=== PATIENT | female | born 1985 | race Caucasian/White ===

== ENCOUNTER 2023-06-21 21:11 | Emergency (ER) | payer OTHER, SELFPAY ==
[2023-06-21 21:35] LABS: % Basophils 0.5 % (0-2); % Eosinophils 1.8 % (0-6); % Immature Granulocytes 0.2 % (0-0.5); % Lymphocytes 34.6 % (20.5-51.1); % Monocytes 5.7 % (1.7-9.3); % Neutrophils 57.2 % (42.2-75.2); Absolute Eosinophils 0.1 10^3/uL (0-0.7); Absolute Lymphocytes 2.1 10^3/uL (1.2-3.4); Absolute Monocytes 0.4 10^3/uL (0.1-0.6); Absolute Neutrophils 3.5 10^3/uL (1.4-6.5); Hematocrit 32.3 % (37.0-47.0); Hemoglobin 10.1 g/dL (12.0-16.0); Mean Corp Hgb Conc. 31.3 g/dL (33.0-37.0); Mean Corpuscular Hgb 22.7 pg (27.0-31.0); Mean Corpuscular Volume 72.6 fL (81.0-99.0); Nucleated Red Blood Cells % 0 %; Platelet Count 189 10^3/uL (130-400); Red Blood Cell Count 4.45 10^6/uL (4.20-5.40); Red Cell Dist. Width 17.2 % (11.5-14.5); White Blood Cell Count 6.1 10^3/uL (4.8-10.8)
[2023-06-21 21:36] LABS: Urine Albumin Trace (Neg - Trace); Urine Bilirubin 1+ (Negative); Urine Character Clear (Clear); Urine Color Yellow; Urine Glucose Negative (Negative); Urine Ketone Trace (Negative); Urine Leukocyte Negative (Negative); Urine Nitrite Negative (Negative); Urine Occult Blood Negative (Negative); Urine Specific Gravity 1.025 (<1.030); Urine Urobilinogen 2+ (Neg - 1+)
[2023-06-21 21:49] LABS: HCG, Serum Qualitative Screen Negative
[2023-06-21 21:53] LABS: ALT (SGPT) 13 U/L (0-35); AST (SGOT) 18 U/L (14-36); Albumin 4.3 g/dl (3.5-5.0); Alkaline Phosphatase 69 U/L (38-126); Blood Urea Nitrogen 17 mg/dl (7-17); Calcium 9.4 mg/dl (8.4-10.2); Carbon Dioxide 26 mmol/L (22-30); Chloride 101 mmol/L (98-107); Glucose 109 mg/dl (70-99); Potassium 3.9 mmol/L (3.5-5.1); Sodium 134 mmol/L (135-145); Total Bilirubin 0.6 mg/dl (0.2-1.3); Total Protein 7.1 g/dl (6.3-8.2); eGFR > 60.00
[2023-06-21 21:54] LABS: Lipase 96 U/L (23-300)
[2023-06-21 22:59] VITALS: BMI 40.4
[2023-06-21 23:06] VITALS: BP 157/94
--- NOTE | 2023-06-21 23:08 | ED.GENMED ---
History of Present Illness
<KEDAR Wyatt - Last Filed: 06/22/23 03:55>
General
Chief Complaint: Abdominal Pain
Source: patient
Exam Limitations: none
Time Seen by Provider: 06/21/23 22:37
Nursing documentation reviewed up to this point in time: agreed with
Travel History
Have you had any contact with someone who has COVID-19?: No
Do you have any symptoms of coronavirus? Fever > 100 degrees, chills, cough, shortness of breath, sore throat, loss of taste or smell, muscle aches, or headache?: No
History of Present Illness
History of Present Illness:
This is a 37 year old female with history of gastric sleeve (August 2022), HTN, and anemia who presents to the ED with complaint of LLQ pain x1 week. She describes the pain to be sharp and intermittent. Her pain radiates to her left lower back. She
also reports left hip swelling. She has not tried any medication for pain relief and she has not noticed any patterns to her abdominal pain. She does note certain positions make it worse. LMP 2 months ago, which is normal for her menstrual cycle.
Last BM was yesterday. She denies any NVD, dysuria, frequency or urgency, chest pain, shortness of breath, fever, or headache. She denies any trauma or known injury but states she lifts heavy boxes at work. She had a gastric sleeve in August 2022 with
no complications.
Past History
<KEDAR Wyatt - Last Filed: 06/22/23 03:55>
Past History
ED Past Medical History: HTN and Other (anemia)
ED Past Surgical History: Other (Gastric sleeve 08/2022.)
Social History
Tobacco: Smoker
Alcohol: Occasional
Personal: Single
Living: with family
Employment: Employed (works at a school)
Review of Systems
<KEDAR Wyatt - Last Filed: 06/22/23 03:55>
Review of Systems
Allergies reviewed?: Yes
All Other Systems: Not applicable
Constitutional: Reports no symptoms
EENT: Reports no symptoms
Respiratory: Reports no symptoms
Cardiac: Reports no symptoms
ABD/GI: Reports abdominal pain (LLQ radiates to left lower back)
: Reports no symptoms
Musculoskeletal: Reports joint swelling (Left hip swelling)
Skin: Reports no symptoms
Neurological: Reports no symptoms
Endocrine: Reports no symptoms
Hematologic/Lymphatic: Reports no symptoms
Psychiatric: Reports no symptoms
Phy Exam
<KEDAR Wyatt - Last Filed: 06/22/23 03:55>
General Physical Exam
General Presentation: well appearing and no apparent distress
General Skin: warm and dry
General Habitus: normal
General Mental: alert
General Hydration: appears well hydrated
ENT Exam
ENT Exam: EOMI, pharynx normal, neck supple and normocephalic
Eye Exam
Eye Exam: PERRL, cornea clear and conjunctiva normal
Cardiovascular Exam
Cardiovascular Exam: regular rate/rhythm, no edema, no murmur and normal peripheral pulses
Pulmonary Exam
Pulmonary Exam: lungs clear, no respiratory distress, no rales, no crackles, no rhonchi, no stridor, no wheezing and no cough
Gastrointestinal Exam
Gastrointestinal Exam: normal bowel sounds, soft, no organomegaly, no pulsatile mass, non distended, no cva tenderness and surgical scar
Palpation: left lower quadrant: Mild tenderness
Auscultation of Abdomen: normal
Neurological Exam
Neurological Exam: alert, oriented x3, no motor deficits and speech normal
Musculoskeletal Exam
Musculoskeletal Exam: full ROM and no edema
Skin Exam
Skin Exam: normal color, warm/dry, no rash and no petechia
Psychiatric Exam
Psychiatric Exam: normal mood/affect
Course
<KEDAR Wyatt - Last Filed: 06/22/23 03:55>
Orders/Labs/Results
Orders:
Orders
06/21/23 21:18
Test Result ONCE
06/21/23 21:26
Complete Blood Count/With Diff Urgent
Comprehensive Metabolic Panel Urgent
HCG, Serum Qualitative Screen Urgent
Lipase Urgent
Urinalysis Reflex To Culture Urgent
Date Specimen was Collected: 06/21/23
Time Specimen was Collected: 21:23
06/21/23 23:14
0.9% Sodium Chloride 1000 ml [Nss] 1,000 ml IV BOLUS
HYDROmorphone [Dilaudid] 1 mg IV NOW STA
Ondansetron Injectable [Zofran] 4 mg IV NOW STA
06/22/23 00:00
CT Abd/pelvis W Iv Cont Urgent
Reason For Exam: LLQ pain x 1 week
06/22/23 03:07
US Pelvis W Transvag Combined Urgent
Reason For Exam: LLQ, L pelvic pain x 1 week-worsening
06/22/23 03:08
0.9% Sodium Chloride 1000 ml [Nss] 1,000 ml IV BOLUS
06/22/23 05:54
HYDROmorphone [Dilaudid] 0.5 mg .ROUTE .STK-MED ONE
06/22/23 06:24
0.9% Sodium Chloride 1000 ml [Nss] 1,000 ml IV 150 mls/hr
HYDROmorphone [Dilaudid] 0.5 mg IV Q3HPRN PRN
06/22/23 06:39
Type+Screen Urgent
Abnormal Lab Results
06/21/23
21:26
Hgb 10.1 L g/dL
(12.0-16.0)
Hct 32.3 L %
(37.0-47.0)
MCV 72.6 L fL
(81.0-99.0)
MCH 22.7 L pg
(27.0-31.0)
MCHC 31.3 L g/dL
(33.0-37.0)
RDW 17.2 H %
(11.5-14.5)
Sodium 134 L mmol/L
(135-145)
Glucose 109 H mg/dl
(70-99)
Urine Ketones Trace A
(Negative)
Urine Bilirubin 1+ A
(Negative)
Urine Urobilinogen 2+ A
(Neg - 1+)
06/21/23 21:26
06/21/23 21:26
Vital Signs
Initial and Last Documented VS:
Initial Vital Signs
Temp Pulse Resp Pulse Ox
99.0 F 112 20 100
06/21/23 21:14 06/21/23 21:14 06/21/23 21:14 06/21/23 21:14
Last Documented Vital Signs
Temp Pulse Resp BP Pulse Ox
99.0 F 67 16 133/78 94
06/21/23 21:14 06/22/23 03:30 06/22/23 03:30 06/22/23 08:00 06/22/23 08:15
<Clover Motley, DO - Last Filed: 06/22/23 06:29>
Orders/Labs/Results
Orders:
Orders
06/21/23 21:18
Test Result ONCE
06/21/23 21:26
Complete Blood Count/With Diff Urgent
Comprehensive Metabolic Panel Urgent
HCG, Serum Qualitative Screen Urgent
Lipase Urgent
Urinalysis Reflex To Culture Urgent
Date Specimen was Collected: 06/21/23
Time Specimen was Collected: 21:23
06/21/23 23:14
0.9% Sodium Chloride 1000 ml [Nss] 1,000 ml IV BOLUS
HYDROmorphone [Dilaudid] 1 mg IV NOW STA
Ondansetron Injectable [Zofran] 4 mg IV NOW STA
06/22/23 00:00
CT Abd/pelvis W Iv Cont Urgent
Reason For Exam: LLQ pain x 1 week
06/22/23 03:07
US Pelvis W Transvag Combined Urgent
Reason For Exam: LLQ, L pelvic pain x 1 week-worsening
06/22/23 03:08
0.9% Sodium Chloride 1000 ml [Nss] 1,000 ml IV BOLUS
06/22/23 05:54
HYDROmorphone [Dilaudid] 0.5 mg .ROUTE .STK-MED ONE
06/22/23 06:24
0.9% Sodium Chloride 1000 ml [Nss] 1,000 ml IV 150 mls/hr
HYDROmorphone [Dilaudid] 0.5 mg IV Q3HPRN PRN
06/22/23 06:39
Type+Screen Urgent
Abnormal Lab Results
06/21/23
21:26
Hgb 10.1 L g/dL
(12.0-16.0)
Hct 32.3 L %
(37.0-47.0)
MCV 72.6 L fL
(81.0-99.0)
MCH 22.7 L pg
(27.0-31.0)
MCHC 31.3 L g/dL
(33.0-37.0)
RDW 17.2 H %
(11.5-14.5)
Sodium 134 L mmol/L
(135-145)
Glucose 109 H mg/dl
(70-99)
Urine Ketones Trace A
(Negative)
Urine Bilirubin 1+ A
(Negative)
Urine Urobilinogen 2+ A
(Neg - 1+)
06/21/23 21:26
06/21/23 21:26
Vital Signs
Initial and Last Documented VS:
Initial Vital Signs
Temp Pulse Resp Pulse Ox
99.0 F 112 20 100
06/21/23 21:14 06/21/23 21:14 06/21/23 21:14 06/21/23 21:14
Last Documented Vital Signs
Temp Pulse Resp BP Pulse Ox
99.0 F 67 16 133/78 94
06/21/23 21:14 06/22/23 03:30 06/22/23 03:30 06/22/23 08:00 06/22/23 08:15
<Ariana oHffman MD - Last Filed: 06/22/23 09:36>
Orders/Labs/Results
Orders:
Orders
06/21/23 21:18
Test Result ONCE
06/21/23 21:26
Complete Blood Count/With Diff Urgent
Comprehensive Metabolic Panel Urgent
HCG, Serum Qualitative Screen Urgent
Lipase Urgent
Urinalysis Reflex To Culture Urgent
Date Specimen was Collected: 06/21/23
Time Specimen was Collected: 21:23
06/21/23 23:14
0.9% Sodium Chloride 1000 ml [Nss] 1,000 ml IV BOLUS
HYDROmorphone [Dilaudid] 1 mg IV NOW STA
Ondansetron Injectable [Zofran] 4 mg IV NOW STA
06/22/23 00:00
CT Abd/pelvis W Iv Cont Urgent
Reason For Exam: LLQ pain x 1 week
06/22/23 03:07
US Pelvis W Transvag Combined Urgent
Reason For Exam: LLQ, L pelvic pain x 1 week-worsening
06/22/23 03:08
0.9% Sodium Chloride 1000 ml [Nss] 1,000 ml IV BOLUS
06/22/23 05:54
HYDROmorphone [Dilaudid] 0.5 mg .ROUTE .STK-MED ONE
06/22/23 06:24
0.9% Sodium Chloride 1000 ml [Nss] 1,000 ml IV 150 mls/hr
HYDROmorphone [Dilaudid] 0.5 mg IV Q3HPRN PRN
06/22/23 06:39
Type+Screen Urgent
Abnormal Lab Results
06/21/23
21:26
Hgb 10.1 L g/dL
(12.0-16.0)
Hct 32.3 L %
(37.0-47.0)
MCV 72.6 L fL
(81.0-99.0)
MCH 22.7 L pg
(27.0-31.0)
MCHC 31.3 L g/dL
(33.0-37.0)
RDW 17.2 H %
(11.5-14.5)
Sodium 134 L mmol/L
(135-145)
Glucose 109 H mg/dl
(70-99)
Urine Ketones Trace A
(Negative)
Urine Bilirubin 1+ A
(Negative)
Urine Urobilinogen 2+ A
(Neg - 1+)
06/21/23 21:26
06/21/23 21:26
Vital Signs
Initial and Last Documented VS:
Initial Vital Signs
Temp Pulse Resp Pulse Ox
99.0 F 112 20 100
06/21/23 21:14 06/21/23 21:14 06/21/23 21:14 06/21/23 21:14
Last Documented Vital Signs
Temp Pulse Resp BP Pulse Ox
99.0 F 67 16 133/78 94
06/21/23 21:14 06/22/23 03:30 06/22/23 03:30 06/22/23 08:00 06/22/23 08:15
<KEDAR Wyatt Last Filed: 06/22/23 03:55>
MDM/Problems Addressed
Differential Diagnosis Includes:
Ectopic , ovarian torsion, ovarian cyst rupture, diverticulitis, pancreatitis, appendicitis
Ectopic considered due to LMP 2 months ago, however this is a typical menstrual cycle for her. Negative hCG on labs. Ovarian torsion considered, however less likely due to intermittent pain for the past week. Ovarian cyst rupture, but she
denies NVD. Diverticulitis considered, but no fever. Pancreatitis an appendicitis considered but location of abdominal pain is inconsistent with these and no fever. Normal lipase on exam.
<Clover Motley DO - Last Filed: 06/22/23 06:29>
*Radiology
Radiology exam reviewed: radiology read reviewed (CT abdomen pelvis shows no acute abnormality. There is no bowel obstruction. Periumbilical fat-containing hernia without suspicious features.)
*Pulse Oximetry
Patient hypoxic: no
*Critical Care Note
Total Time (30-74mins, 75-104mins- exclusive of procedures): Not Applicable
ED Attending Note
<KEDAR Wyatt - Last Filed: 06/22/23 03:55>
-
Portions of this chart may have been created with voice recognition software.� Occasional wrong word or��sound alike� substitutions may have occurred due to the inherent limitations of voice recognition software.
<Clover Motley DO - Last Filed: 06/22/23 06:29>
ED Attending Note
Patient seen and examined by attending physician: Yes
I performed the substantive portion of visit, reviewed & personally made and approve the management plan that is documented in note by myself or VI.: Yes
I performed a history and physical exam of patient and discussed management with resident, I reviewed resident's note and agree with documented findings and plan of care.: Yes
ED Attending Note:
This is a 37-year-old woman who complains of left lower quadrant pain that began 1 week ago, has been persistent and progressive throughout the week. Left lower quadrant pain intermittently radiates to her left anterior hip and she thought that she
felt mild swelling of her hip. She denies increase in pain with bearing weight nor definitive increase in pain with ambulation but pain is much worse with movement, worse with palpation of her abdomen. No history of similar episodes in the past.
She denies nausea nor vomiting, denies diarrhea or constipation. She denies dysuria urgency nor hematuria.
Last menstrual period 2 months ago, she denies risk of and states menses are generally irregular.
She has history of gastric sleeve procedure August 2022.
GENERAL: 37-year-old obese woman appears her stated age, bright and alert pleasant, appears in moderate distress related to pain. Cooperative.
EYE: anicteric
NECK: Supple, nontender, no meningismus, no significant adenopathy.
ENT: oral mucosa is moist. No rhinorrhea.
CARDIAC: Regular rate and rhythm. no murmur.
LUNGS: Clear breath sounds bilaterally, no acute respiratory distress, no wheezes/rales/rhonchi
ABDOMEN: Rotund, soft, nondistended, exquisite tenderness left lower quadrant with local guarding without rigidity. There is a moderately firm, moderately tender subcutaneous nodule midline infraumbilical region. no cvat. normoactive BS.
NEUROLOGICAL: Alert and oriented x3, no focal neuro deficits.
SKIN: Warm and dry, normal color, skin intact. No rash.
MUSCULOSKELETAL: No C/C/E. peripheral pulses are full and equal b/l. No palpable tenderness.
PSYCH: Normal and appropriate interaction.
Concern for diverticulitis, colitis, small bowel obstruction, incarcerated infraumbilical hernia, ruptured ovarian cyst, ovarian torsion.
Thus far labs are unremarkable with normal white blood cell count, mild anemia, unremarkable chemistries. hCG is negative.
Urinalysis is unremarkable as well.
Will medicate for pain, initiate IV fluids and plan for CT abdomen pelvis.
06/22/[address] abdomen pelvis is unremarkable, no bowel obstruction, no acute abnormality within the abdomen nor pelvis.
Patient sleeping upon reevaluation, awakens easily. Admits to mild moderate improvement in pain but continues with moderate tenderness to palpation left lower quadrant.
There is still some concern for potential ovarian pathology thus will check pelvic ultrasound.
06/22/2023 0501 AM
Pelvic ultrasound is limited however the left ovary is identified and there is no flow identified to the left ovary concerning for torsion. Right ovary is not seen.
Will consult DECORATOR INSPECTOR.
06/22/2023 05:30 AM
Patient has been evaluated by DECORATOR INSPECTOR, Dr. King.
She suspects patient may require laparoscopy for possible torsion but, due to significantly limited ultrasound requests ultrasound to be officially read by our radiologist this morning and will plan to pass on case to Dr. Marin, the a.m./relieving
dinkey press operator.
Will continue to observe/hold the patient in the ED, continue IV fluid maintenance and continue with IV pain medication as needed.
<Ariana Hoffman MD - Last Filed: 06/22/23 09:36>
ED Attending Note
ED Attending Note:
This is a 37-year-old woman who complains of left lower quadrant pain that began 1 week ago, has been persistent and progressive throughout the week. Left lower quadrant pain intermittently radiates to her left anterior hip and she thought that she
felt mild swelling of her hip. She denies increase in pain with bearing weight nor definitive increase in pain with ambulation but pain is much worse with movement, worse with palpation of her abdomen. No history of similar episodes in the past.
She denies nausea nor vomiting, denies diarrhea or constipation. She denies dysuria urgency nor hematuria.
Last menstrual period 2 months ago, she denies risk of and states menses are generally irregular.
She has history of gastric sleeve procedure August 2022.
GENERAL: 37-year-old obese woman appears her stated age, bright and alert pleasant, appears in moderate distress related to pain. Cooperative.
EYE: anicteric
NECK: Supple, nontender, no meningismus, no significant adenopathy.
ENT: oral mucosa is moist. No rhinorrhea.
CARDIAC: Regular rate and rhythm. no murmur.
LUNGS: Clear breath sounds bilaterally, no acute respiratory distress, no wheezes/rales/rhonchi
ABDOMEN: Rotund, soft, nondistended, exquisite tenderness left lower quadrant with local guarding without rigidity. There is a moderately firm, moderately tender subcutaneous nodule midline infraumbilical region. no cvat. normoactive BS.
NEUROLOGICAL: Alert and oriented x3, no focal neuro deficits.
SKIN: Warm and dry, normal color, skin intact. No rash.
MUSCULOSKELETAL: No C/C/E. peripheral pulses are full and equal b/l. No palpable tenderness.
PSYCH: Normal and appropriate interaction.
Concern for diverticulitis, colitis, small bowel obstruction, incarcerated infraumbilical hernia, ruptured ovarian cyst, ovarian torsion.
Thus far labs are unremarkable with normal white blood cell count, mild anemia, unremarkable chemistries. hCG is negative.
Urinalysis is unremarkable as well.
Will medicate for pain, initiate IV fluids and plan for CT abdomen pelvis.
06/22/[address] abdomen pelvis is unremarkable, no bowel obstruction, no acute abnormality within the abdomen nor pelvis.
Patient sleeping upon reevaluation, awakens easily. Admits to mild moderate improvement in pain but continues with moderate tenderness to palpation left lower quadrant.
There is still some concern for potential ovarian pathology thus will check pelvic ultrasound.
06/22/2023 0501 AM
Pelvic ultrasound is limited however the left ovary is identified and there is no flow identified to the left ovary concerning for torsion. Right ovary is not seen.
Will consult DECORATOR INSPECTOR.
06/22/2023 05:30 AM
Patient has been evaluated by DECORATOR INSPECTOR, Dr. King.
She suspects patient may require laparoscopy for possible torsion but, due to significantly limited ultrasound requests ultrasound to be officially read by our radiologist this morning and will plan to pass on case to Dr. Marin, the a.m./relieving
dinkey press operator.
Will continue to observe/hold the patient in the ED, continue IV fluid maintenance and continue with IV pain medication as needed.
9:30 AM
I spoke extensively to Dr. Marin who does not believe that patient's symptoms are consistent with left ovarian torsion. I had radiology look over patient's ultrasound and CAT scan and he does not feel that patient has evidence of ovarian torsion.
I personally examined the patient and she has a very tender, firm and nonreducible abdominal hernia that she reports has been causing her significant pain. It is exquisitely tender. Given patient's pain is intractable, decision made to admit the
patient to the hospitalist. General surgery, Dr. Winter made aware
Discharge Plan
Departure
Patient Disposition: Admit
Date of Disposition: 06/22/23
Time of Disposition: 06:28
Admit to doctor: Mansoor/Jessica
Presentation/result/management discussed w/ accepting MD/DO: Hospitalist
Discharge Problem:
Abdominal pain, acute, left lower quadrant
Prescriptions:
No Action
famotidine 20 MG tablet
20 mg PO BID Qty: 28 0RF
Rx Instructions:
Take 20 mg twice a day for 14 days
ascorbic acid (vitamin C) [Vitamin C] 500 MG tablet
1,000 mg PO BID Qty: 56 0RF
Rx Instructions:
Take 1,000 mg twice a day for 14 days
aspirin 81 MG tablet,chewable
81 mg PO DAILY Qty: 14 0RF
Rx Instructions:
Take 81 mg daily for 14 days
zinc sulfate 220 MG capsule
220 mg PO DAILY Qty: 14 0RF
Rx Instructions:
Take 220 mg daily for 14 days
cholecalciferol (vitamin D3) 1,000 UNITS tablet
2,000 units PO DAILY Qty: 28 0RF
Rx Instructions:
Take 2,000 units daily for 14 days
melatonin 5 MG tablet
5 mg PO HS Qty: 14 0RF
Rx Instructions:
Take 5 mg daily at bedtime for 14 days
albuterol sulfate 1 PUFF HFA aerosol inhaler
2 puff inhalation R Q4HPRN PRN (Reason: shortness of breath) Qty: 1 0RF
nicotine 1 EACH patch 24 hour
1 ea TD DAILY Qty: 30 0RF
nicotine 1 EACH patch 24 hour
1 ea TD DAILY Qty: 30 0RF
hydrochlorothiazide 12.5 MG capsule
12.5 mg PO DAILY Qty: 30 0RF
amlodipine 2.5 MG tablet
2.5 mg PO DAILY Qty: 30 0RF
Referrals:
Colin Bernard Jr., DO [Family Provider] -
Interventions
Interventions:
*Risk Screen - Suicide Last Done: 06/21/23 21:14
*General Assessment Last Done: 06/21/23 21:14
*Neglect/Abuse Screening Last Done: 06/21/23 21:14
ED- Fall Risk Assessment Last Done: 06/21/23 22:59
*ED COVID-19 Vaccine History Last Done: 06/21/23 22:59
EZ-Ngqxxn-Shrghvlldw Assessment Last Done: 06/21/23 22:59
Discharge Date and Time
Print Language: HUNGARIAN
[2023-06-21] MEDS: ZOFRAN 4 MG IV (23:34)
[2023-06-21] MEDS: DILAUDID 1 MG IV (23:35)
[2023-06-21] MEDS: NSS 1000 IV (23:42)
[2023-06-22] VITALS (11 sets, daily range): BP systolic 129–175; BP diastolic 78–102
[2023-06-22] MEDS: NSS 1000 IV ×2 (03:16→06:38)
[2023-06-22] MEDS: DILAUDID 0.5 MG IV (06:37)
--- NOTE | 2023-06-22 08:20 | W.PN.UPDATE ---
Update Note
Progress Note Update
received sign out from dr. King.
37yo who has been experiencing intermittent abdominal pain x 1 week. She says its a constant dull ache but certain movements can cause it to be exacerbated. Her pain is on the left and wraps around her back. The sign out I received was that her
CT scan was normal but there was concern for torsion of the left ovary due to lack of visible doppler flow. She has received 2 doses of IV dilaudid since presentation.
Official CT scan read is pending but her US report shows
'Doppler flow to the left ovary is not clearly identified but this may be due to technical factors and patient body habitus. The left ovary does not appear to be enlarged, and both ovaries are symmetric and normal in appearance on the CT
abdomen/pelvis from earlier in the same day. Ovarian torsion would be considered less likely but cannot be completely excluded and clinical correlation is recommended.'
When I first entered the room, patient is sleeping, but I was able to easily arouse her.
Abd: obese, soft, palpable lump/mass above the umbilicus with mild ttp, moderate ttp to the left of the umbilicus. no r/g.
When I press in the pelvis/groin patient states this is NOT where her pain is located.
I reviewed with patient my exam findings and the US report findings. Given the length of time and nature of her pain, the location of the pain and the findings on her US report, my suspicion for an ovarian torsion is low. We can consider repeat
Pelvic US to see if we can get better views of the ovaries, but with my low clinical suspicion I do not feel that this is necessary. She may have an umbilical hernia, could this be the cause of her mid abdominal pain? I do not however think she has
strangulated bowel as again her clinical picture is not c/w this. At this time I do not believe immediate surgical intervention from RIGGING HELPER is needed and I recommended she establish care and f/u outpatient with RIGGING HELPER.
--- NOTE | 2023-06-22 10:25 | CON.GS ---
Consultation
-
Requesting Provider: Yasmin
Performing Provider: Mg Winter
Reason for Consultation: hernia
Medical History
-
Chief Complaint: abdominal pain
History of Present Illness:
This is a 37 yo female with a h/o gastric sleeve in August of 2022 at [place] presenting with pain at a periumbilical hernia site. She denies nausea and vomiting. She is passing normal stools/flatus. Reports onset of pain was about 1 week ago. She
has been able to manage at home, but was concerned given persistent.
Past Medical History
Past Medical History: HTN
Past Surgical History: Other (Gastric sleeve 08/2022)
Social History
Tobacco: Former Smoker
Alcohol: Occasional
Family History
Family History: Reviewed & Not Pertinent
Allergies / Home Medications
Allergy/AdvReac Type Severity Reaction Status Date / Time
latex Allergy Hives Verified 10/31/22 15:15
�Medication �Instructions �Recorded �Confirmed �Type
albuterol sulfate 90 mcg/actuation 2 puff inhalation R Q4HPRN PRN 12/14/20 Rx
aerosol inhaler shortness of breath ##1
ascorbic acid (vitamin C) 500 mg 1,000 mg (2 x 500 mg) PO BID #56 12/14/20 Rx
tablet (Vitamin C) tabs
aspirin 81 mg chewable tablet 81 mg PO DAILY #14 tabs 12/14/20 Rx
cholecalciferol (vitamin D3) 25 2,000 units PO DAILY #28 tabs 12/14/20 Rx
mcg (1,000 unit) tablet
famotidine 20 mg tablet 20 mg PO BID #28 tabs 12/14/20 Rx
melatonin 5 mg tablet 5 mg PO HS #14 tabs 12/14/20 Rx
nicotine 21 mg/24 hr daily 1 ea TD DAILY ##30 12/14/20 Rx
transdermal patch
zinc sulfate 50 mg zinc (220 mg) 220 mg (4.4 x 50 mg zinc (220 mg)) 12/14/20 Rx
capsule PO DAILY #14 caps
amlodipine 2.5 mg tablet 2.5 mg PO DAILY #30 tabs 12/16/20 Rx
hydrochlorothiazide 12.5 mg capsule 12.5 mg PO DAILY #30 caps 12/16/20 Rx
nicotine 21 mg/24 hr daily 1 ea TD DAILY ##30 12/16/20 Rx
transdermal patch
Review of Systems
-
History Source: Patient
All other systems: Negative unless noted
A 10 point review of systems was completed, and was negative except as per HPI.
Physical Exam
Vital Signs
Temp Pulse Resp BP Pulse Ox
99.0 F 67 16 148/91 94
06/21/23 21:14 06/22/23 03:30 06/22/23 03:30 06/22/23 10:00 06/22/23 09:30
06/21/23 06/22/23 06/23/23
06:59 06:59 06:59
Actual Weight 138.7 kg
Body Mass Index (BMI) 40.4
Lab Results
06/21/23 21:26
06/21/23 21:26
WBC 6.1 10^3/uL (4.8-10.8) 06/21/23 21:26
Hgb 10.1 g/dL (12.0-16.0) L 06/21/23 21:26
Hct 32.3 % (37.0-47.0) L 06/21/23 21:26
Plt Count 189 10^3/uL (130-400) 06/21/23 21:26
Abs Immat Gran (auto) 0.0 10^3/uL (0-0.05) 06/21/23 21:26
Neutrophils % 57.2 % (42.2-75.2) 06/21/23 21:26
Physical Exam
General: Well Developed and No Apparent Distress
HEENT: Moist Mucous Membranes
Respiratory: Non Labored Respirations
GI: Soft and Tender (localized discomfort to periumbilical hernia location, partially reducible/soft. no skin changes. )
Skin: Warm and Dry
Neuro: Awake, Alert and AO x 3
Psych: Calm
Data Reviewed
-
CT Scan: Image Personally Visualized and interpreted, Report Reviewed by me, Discussed with Physician and Discussed with Patient
Labs: Labs Reviewed by me, Discussed with Physician and Discussed with Patient
Old Records: Reviewed
Assessment / Plan
-
37 yo female with h/o gastric sleeve in August of 2022 at [place] presenting with pain from a periumbilical hernia. CT imaging with mesenteric fat within the hernia, no bowel present. No bowel threat/compromise. Tender locally but soft. No skin
changes. No n/v. Passing flatus/stools. AFVSS.
--No emergent surgery planned
--Ok for PO analgesics
--Regular diet
--Outpatient follow up with surgery to discuss hernia repair electively
--Ok for discharge from surgical standpoint, patient agreeable
--- NOTE | 2023-06-22 11:32 | ED.GENMED ---
History of Present Illness
General
Chief Complaint: Abdominal Pain
Source: patient
Exam Limitations: none
Time Seen by Provider: 06/21/23 22:37
Nursing documentation reviewed up to this point in time: agreed with
Travel History
Have you had any contact with someone who has COVID-19?: No
Do you have any symptoms of coronavirus? Fever > 100 degrees, chills, cough, shortness of breath, sore throat, loss of taste or smell, muscle aches, or headache?: No
History of Present Illness
History of Present Illness:
Prior chart was signed prematurely. This chart was opened to provide an update to patient care in the ED. Patient's CAT scan shows a hernia containing mesenteric fat without containment of bowel. This seems to be the source of patient's pain.
General surgery came to evaluate the patient at bedside and feels that patient can safely go home and be followed for this hernia as an outpatient. Patient is agreeable to this plan and happy to go home. She reports that the pain is tolerable.
She has had no fever or vomiting.
Past History
Past History
ED Past Medical History: HTN and Other (anemia)
ED Past Surgical History: Other (Gastric sleeve 08/2022.)
Social History
Tobacco: Smoker
Alcohol: Occasional
Personal: Single
Living: with family
Employment: Employed (works at a school)
Family History
Family History: Other
Review of Systems
Review of Systems
Allergies reviewed?: Yes
All Other Systems: Not applicable
Phy Exam
Physical Exam
Physical Exam:
See previous chart from visit
Course
Orders/Labs/Results
Orders:
Orders
06/21/23 21:18
Test Result ONCE
06/21/23 21:26
Complete Blood Count/With Diff Urgent
Comprehensive Metabolic Panel Urgent
HCG, Serum Qualitative Screen Urgent
Lipase Urgent
Urinalysis Reflex To Culture Urgent
Date Specimen was Collected: 06/21/23
Time Specimen was Collected: 21:23
06/21/23 23:14
0.9% Sodium Chloride 1000 ml [Nss] 1,000 ml IV BOLUS
HYDROmorphone [Dilaudid] 1 mg IV NOW STA
Ondansetron Injectable [Zofran] 4 mg IV NOW STA
06/22/23 00:00
CT Abd/pelvis W Iv Cont Urgent
Reason For Exam: LLQ pain x 1 week
06/22/23 03:07
US Pelvis W Transvag Combined Urgent
Reason For Exam: LLQ, L pelvic pain x 1 week-worsening
06/22/23 03:08
0.9% Sodium Chloride 1000 ml [Nss] 1,000 ml IV BOLUS
06/22/23 05:54
HYDROmorphone [Dilaudid] 0.5 mg .ROUTE .STK-MED ONE
06/22/23 06:24
0.9% Sodium Chloride 1000 ml [Nss] 1,000 ml IV 150 mls/hr
HYDROmorphone [Dilaudid] 0.5 mg IV Q3HPRN PRN
06/22/23 06:39
Type+Screen Urgent
06/22/23 Lunch
Regular
At Your Request: Full Participation
Does patient need a safe tray?: No
Abnormal Lab Results
06/21/23
21:26
Hgb 10.1 L g/dL
(12.0-16.0)
Hct 32.3 L %
(37.0-47.0)
MCV 72.6 L fL
(81.0-99.0)
MCH 22.7 L pg
(27.0-31.0)
MCHC 31.3 L g/dL
(33.0-37.0)
RDW 17.2 H %
(11.5-14.5)
Sodium 134 L mmol/L
(135-145)
Glucose 109 H mg/dl
(70-99)
Urine Ketones Trace A
(Negative)
Urine Bilirubin 1+ A
(Negative)
Urine Urobilinogen 2+ A
(Neg - 1+)
06/21/23 21:26
06/21/23 21:26
Vital Signs
Initial and Last Documented VS:
Initial Vital Signs
Temp Pulse Resp Pulse Ox
99.0 F 112 20 100
06/21/23 21:14 06/21/23 21:14 06/21/23 21:14 06/21/23 21:14
Last Documented Vital Signs
Temp Pulse Resp BP Pulse Ox
99.0 F 67 16 175/100 94
06/21/23 21:14 06/22/23 03:30 06/22/23 03:30 06/22/23 11:00 06/22/23 09:30
*Radiology
Radiology exam reviewed: radiology read reviewed
*Pulse Oximetry
Patient hypoxic: no
*EKG
Interpreted by ED Provider?: NA
*Sales Host Interpretation
Rate: Sales Host- N/A
*Critical Care Note
Total Time (30-74mins, 75-104mins- exclusive of procedures): Not Applicable
Data Reviewed
Review of Other/Old Records Reveals: Labs
Source: patient
Patient Management
Social determinants of health affecting care: Living situation and Strong social support
Escalation/DeEscalation of care consider admission/obs:
Patient's pain is tolerable. Dr. Winter came and saw the patient at bedside and he will provide outpatient management. There is no sign of ovarian torsion. There is no sign of pyelonephritis. There is no sign of bowel obstruction
ED Attending Note
-
Portions of this chart may have been created with voice recognition software.� Occasional wrong word or��sound alike� substitutions may have occurred due to the inherent limitations of voice recognition software.
Discharge Plan
Departure
Patient Disposition: Home (Routine Discharge)
Date of Disposition: 06/22/23
Time of Disposition: 06:28
Patient with high blood pressure during this ER visit?: Yes
Condition: Good
Discharge Problem:
Hernia of abdominal wall
Instructions: Abdominal Hernia
Prescriptions:
No Action
famotidine 20 MG tablet
20 mg PO BID Qty: 28 0RF
Rx Instructions:
Take 20 mg twice a day for 14 days
ascorbic acid (vitamin C) [Vitamin C] 500 MG tablet
1,000 mg PO BID Qty: 56 0RF
Rx Instructions:
Take 1,000 mg twice a day for 14 days
aspirin 81 MG tablet,chewable
81 mg PO DAILY Qty: 14 0RF
Rx Instructions:
Take 81 mg daily for 14 days
zinc sulfate 220 MG capsule
220 mg PO DAILY Qty: 14 0RF
Rx Instructions:
Take 220 mg daily for 14 days
cholecalciferol (vitamin D3) 1,000 UNITS tablet
2,000 units PO DAILY Qty: 28 0RF
Rx Instructions:
Take 2,000 units daily for 14 days
melatonin 5 MG tablet
5 mg PO HS Qty: 14 0RF
Rx Instructions:
Take 5 mg daily at bedtime for 14 days
albuterol sulfate 1 PUFF HFA aerosol inhaler
2 puff inhalation R Q4HPRN PRN (Reason: shortness of breath) Qty: 1 0RF
nicotine 1 EACH patch 24 hour
1 ea TD DAILY Qty: 30 0RF
nicotine 1 EACH patch 24 hour
1 ea TD DAILY Qty: 30 0RF
hydrochlorothiazide 12.5 MG capsule
12.5 mg PO DAILY Qty: 30 0RF
amlodipine 2.5 MG tablet
2.5 mg PO DAILY Qty: 30 0RF
Referrals:
Ben Houston MD [Active] -
Colin Bernard Jr., DO [Family Provider] -
Eric Winter MD [Active] - (Call Saturday to follow-up in the office this week)
Interventions
Interventions:
*Risk Screen - Suicide Last Done: 06/21/23 21:14
*General Assessment Last Done: 06/21/23 21:14
*Neglect/Abuse Screening Last Done: 06/21/23 21:14
ED- Fall Risk Assessment Last Done: 06/21/23 22:59
*ED COVID-19 Vaccine History Last Done: 06/21/23 22:59
CC-Ollfcr-Nhpghgjopa Assessment Last Done: 06/21/23 22:59
Discharge Date and Time
Print Language: UZBEK
[2023-06-22] MEDS: TYLENOL 1000 MG PO (11:45)
[2023-06-22] MEDS: TORADOL 30 MG IV (11:45)
== END 2023-06-22 12:03 | disposition home or self-care (01) ==
LOC: EMR 21:11
PROVIDERS: Emergency Medicine; EMERGENCY PHYSICIAN Emergency Medicine; FAMILY PHYSICIAN Family Medicine; OTHER PHYSICIAN Obstetrics & Gynecology; OTHER PHYSICIAN Surgery
DX: K43.9 Ventral hernia without obstruction or gangrene (principal); I10 Essential (primary) hypertension; F17.200 Nicotine dependence, unspecified, uncomplicated
CPT/HCPCS: 99285; 96374; 96375 ×2; 96361 ×7; 96376; 74177; 76830; 76856; 80053; 81003; 83690; 84703; 85025; 86850; 86900; 86901; Q9967

== ENCOUNTER 2023-12-31 16:32 | Emergency (ER) | payer OTHER, SELFPAY ==
[2023-12-31 16:34] VITALS: BP 186/100
--- NOTE | 2023-12-31 17:18 | ED.GENMED ---
History of Present Illness
General
Chief Complaint: DVT/Possible Blood Clot
Source: patient
Time Seen by Provider: 12/31/23 17:01
History of Present Illness
History of Present Illness:
38yoF with a history of hypertension, obesity, and prior DVT presenting for evaluation of right thigh pain x 2-3 days. She initially started with pain in her medial thigh a few days ago. The pain is now present in the outer right thigh and she
reports feeling lumps in the area. She is also noticing prominent veins in the left thigh as well. Symptoms feel similar to her previous blood clot. She reports being diagnosed with a superficial blood clot in 2019 after a plane ride. She was
treated with anticoagulation at that time. She denies any chest pain, shortness of breath, or syncope.
Past History
Past History
ED Past Medical History: HTN and Other (anemia)
ED Past Surgical History: Other (Gastric sleeve 08/2022.)
Social History
Tobacco: Smoker
Alcohol: Occasional
Personal: Single
Living: with family
Employment: Employed (works at a school)
Family History
Family History: Other
Phy Exam
General Physical Exam
General Presentation: well appearing and no apparent distress
General age: appears stated age
General Skin: warm and dry
General Habitus: normal
General Mental: alert
ENT Exam
ENT Exam: normocephalic
Cardiovascular Exam
Cardiovascular Exam: regular rate/rhythm and no murmur
Pulmonary Exam
Pulmonary Exam: lungs clear, no respiratory distress, no rales, no crackles, no rhonchi and no wheezing
Christiano Coma Scale
Eye Opening: Spontaneous
Verbal Response: Oriented
Motor Response: Obeys Commands
GCS Total Score: 15
Musculoskeletal Exam
Musculoskeletal Exam: other (Varicosities noted in bilateral legs with chronic venous stasis changes. There are two focal areas of induration/tenderness to the lateral thigh.)
Skin Exam
Skin Exam: normal color and warm/dry
Psychiatric Exam
Psychiatric Exam: normal mood/affect
Course
Orders/Labs/Results
Orders:
Orders
12/31/23 17:16
Venous Doppler Lwr Ext Bilat [US Periph Venous LOWER Ext Keith] Urgent
Comment:
Reason For Exam: R thigh pain, varicosities bilaterally, r/o DVT
Vital Signs
Initial and Last Documented VS:
Initial Vital Signs
Temp Pulse Resp BP Pulse Ox
98.1 F 95 18 186/100 100
12/31/23 16:34 12/31/23 16:34 12/31/23 16:34 12/31/23 16:34 12/31/23 16:34
Last Documented Vital Signs
Temp Pulse Resp BP Pulse Ox
98.1 F 95 18 186/100 100
12/31/23 16:34 12/31/23 16:34 12/31/23 16:34 12/31/23 16:34 12/31/23 16:34
MDM/Problems Addressed
Differential Diagnosis Includes:
38yoF here with R thigh pain x 2-3 days. Hx of DVT in the past and this feels the same. No CP/SOB. She is hypertensive with otherwise normal vitals. There are two area of induration/tenderness in the R lateral thigh on exam. Varicose veins and
chronic venous stasis changes noted bilaterally. Differential diagnosis includes DVT vs. superficial thrombophlebitis
Initial ED plan: Check bilateral venous duplex.
*Critical Care Note
Total Time (30-74mins, 75-104mins- exclusive of procedures): Not Applicable
Update Note
Update Note:
Ultrasound shows superficial thrombosis of varicose veins in lateral thigh/hip. No DVT noted. No indication for anticoagulation at this time. Supportive care discussed including warm compresses and NSAIDs. Advised close f/u with PCP and ED return
precautions discussed. She expressed understanding and is agreeable to plan. She was discharged in stable condition.
ED Attending Note
-
Portions of this chart may have been created with voice recognition software.� Occasional wrong word or��sound alike� substitutions may have occurred due to the inherent limitations of voice recognition software.
Discharge Plan
Departure
Patient Disposition: Home (Routine Discharge)
Date of Disposition: 12/31/23
Time of Disposition: 19:04
Patient with high blood pressure during this ER visit?: Yes
Discharge Problem:
Superficial thrombophlebitis of right leg
Instructions: Superficial vein phlebitis and thrombosis
Prescriptions:
No Action
famotidine 20 MG tablet
20 mg PO BID Qty: 28 0RF
Rx Instructions:
Take 20 mg twice a day for 14 days
ascorbic acid (vitamin C) [Vitamin C] 500 MG tablet
1,000 mg PO BID Qty: 56 0RF
Rx Instructions:
Take 1,000 mg twice a day for 14 days
aspirin 81 MG tablet,chewable
81 mg PO DAILY Qty: 14 0RF
Rx Instructions:
Take 81 mg daily for 14 days
zinc sulfate 220 MG capsule
220 mg PO DAILY Qty: 14 0RF
Rx Instructions:
Take 220 mg daily for 14 days
cholecalciferol (vitamin D3) 1,000 UNITS tablet
2,000 units PO DAILY Qty: 28 0RF
Rx Instructions:
Take 2,000 units daily for 14 days
melatonin 5 MG tablet
5 mg PO HS Qty: 14 0RF
Rx Instructions:
Take 5 mg daily at bedtime for 14 days
albuterol sulfate 1 PUFF HFA aerosol inhaler
2 puff inhalation R Q4HPRN PRN (Reason: shortness of breath) Qty: 1 0RF
nicotine 1 EACH patch 24 hour
1 ea TD DAILY Qty: 30 0RF
nicotine 1 EACH patch 24 hour
1 ea TD DAILY Qty: 30 0RF
hydrochlorothiazide 12.5 MG capsule
12.5 mg PO DAILY Qty: 30 0RF
amlodipine 2.5 MG tablet
2.5 mg PO DAILY Qty: 30 0RF
Referrals:
Susi Mistry MD [Family Provider] -
Activity Restrictions/Additional Instructions:
Take ibuprofen 600mg every 6 hours as needed for pain. Apply warm compresses to affected area.
Please follow-up with your family doctor. Return to the ER with any worsening symptoms, signs of infection, chest pain, shortness of breath.
Interventions
Interventions:
*Risk Screen - Suicide Last Done: 12/31/23 16:34
*General Assessment Last Done: 12/31/23 17:01
*Neglect/Abuse Screening Last Done: 12/31/23 16:34
ED- Fall Risk Assessment Last Done: 12/31/23 17:01
*ED COVID-19 Vaccine History Last Done: 12/31/23 16:34
ED- Cardiac Assessment Last Done: 12/31/23 17:01
ED- Pulmonary Assessment Last Done: 12/31/23 17:01
ED-Peripheral Vascular Assessment Last Done: 12/31/23 17:42
ED-Skin Assessment Last Done: 12/31/23 17:01
Discharge Date and Time
Print Language: ESTONIAN
== END 2023-12-31 19:58 | disposition home or self-care (01) ==
LOC: EMR 16:32
PROVIDERS: EMERGENCY PHYSICIAN Emergency Medicine; FAMILY PHYSICIAN Surgery
DX: I80.01 Phlebitis and thrombophlebitis of superficial vessels of right lower extremity (principal); I10 Essential (primary) hypertension; E66.9 Obesity, unspecified; F17.200 Nicotine dependence, unspecified, uncomplicated; Z86.718 Personal history of other venous thrombosis and embolism; Z98.84 Bariatric surgery status
CPT/HCPCS: 99284; 93970

== ENCOUNTER 2024-06-09 15:59 | Emergency (ER) | payer OTHER, SELFPAY ==
[2024-06-09 16:04] VITALS: BP 187/112
[2024-06-09 16:25] LABS: Hematocrit 26.5 % (37.0-47.0); Hemoglobin 7.5 g/dL (12.0-16.0); Mean Corp Hgb Conc. 28.3 g/dL (33.0-37.0); Mean Corpuscular Hgb 18.5 pg (27.0-31.0); Mean Corpuscular Volume 65.4 fL (81.0-99.0); Platelet Count 181 10^3/uL (130-400); Red Blood Cell Count 4.05 10^6/uL (4.20-5.40); Red Cell Dist. Width 19.9 % (11.5-14.5); White Blood Cell Count 3.6 10^3/uL (4.8-10.8)
[2024-06-09 16:34] LABS: HCG, Serum Qualitative Screen Negative
[2024-06-09 16:38] LABS: ALT (SGPT) 12 U/L (0-35); AST (SGOT) 17 U/L (14-36); Alkaline Phosphatase 54 U/L (38-126); Blood Urea Nitrogen 11 mg/dl (7-17); Calcium 9.2 mg/dl (8.4-10.2); Carbon Dioxide 28 mmol/L (22-30); Chloride 105 mmol/L (98-107); Glucose 108 mg/dl (70-99); Potassium 4.1 mmol/L (3.5-5.1); Sodium 139 mmol/L (135-145); Total Bilirubin 0.6 mg/dl (0.2-1.3); Total Protein 6.7 g/dl (6.3-8.2); eGFR > 60.00
[2024-06-09 16:55] LABS: % Basophils 0.6 % (0-2); % Eosinophils 1.1 % (0-6); % Immature Granulocytes 0.3 % (0-0.5); % Lymphocytes 27.4 % (20.5-51.1); % Monocytes 5.8 % (1.7-9.3); % Neutrophils 64.8 % (42.2-75.2); Absolute Monocytes 0.2 10^3/uL (0.1-0.6); Absolute Neutrophils 2.3 10^3/uL (1.4-6.5); Anisocytosis 1+; Hypochromasia 1+; Macrocytosis 1+; Normal RBC Morphology No; Nucleated Red Blood Cells % 0 %; Ovalocytes 1+; Stomatocytes 1+
[2024-06-09 17:05] LABS: TSH Reflex To Free T4 1.44 uIU/ml (0.47-4.68)
[2024-06-09 17:16] VITALS: BP 167/93
[2024-06-09 17:19] VITALS: BP 167/93
[2024-06-09 17:49] VITALS: BMI 40.5
--- NOTE | 2024-06-09 17:57 | ED.GENMED ---
History of Present Illness
General
Chief Complaint: Heart Rate Problem
Source: patient
Exam Limitations: none
Time Seen by Provider: 06/09/24 17:06
Nursing documentation reviewed up to this point in time: agreed with
History of Present Illness
History of Present Illness:
Patient with history of iron deficiency anemia, who has required iron infusion in the past, presents to ED secondary to intermittent episodes of chest palpitations with mild lightheadedness over the past 2 to 3 days. In addition, patient states
that she has fractured tooth, which is giving her increased stress, and is wondering that may be contributing to her palpitations. Denies shortness of breath. Denies fever or chills. Denies recent illness. Denies recent travel or surgery.
Denies back pain. Denies leg pain or swelling. In addition, patient also states that she is tail end of her menstrual cycle, but has been experiencing heavier bleeding recently with her menstrual cycle. Patient has not seen her primary care
physician for some time, as she recently regained her medical insurance.
Past History
Past History
ED Past Medical History: HTN and Other (anemia)
ED Past Surgical History: Other (Gastric sleeve 08/2022.)
Social History
Tobacco: Smoker
Alcohol: Occasional
Personal: Single
Living: with family
Employment: Employed (works at a school)
Family History
Family History: Other
Review of Systems
Review of Systems
Allergies reviewed?: Yes
All Other Systems: ROS reviewed and negative except as documented in HPI and ROS
Constitutional: Reports no symptoms; Denies fever
EENT: Reports other (Toothache)
Respiratory: Reports no symptoms; Denies trouble breathing
Cardiac: Reports palpitations; Denies chest pain or syncope
ABD/GI: Reports no symptoms; Denies vomiting or diarrhea
Musculoskeletal: Reports no symptoms
Skin: Reports no symptoms
Neurological: Reports dizzy; Denies headache, weakness or numbness
Phy Exam
Physical Exam
Physical Exam:
Physical Exam
General: no apparent distress, not acutely ill. afebrile
Head: nc/at. eomi
Neck: supple. no meningeal signs. normal posterior pharynx. #30 tooth:fracture with tenderness. no gingival swelling noted
Heart: s1/s2 regular rate and rhythm, no murmur.
Lungs: no acute respiratory distress. clear bilaterally
Abdomen: normal bowel sounds. not tender.
Neuro: alert and oriented x 3. no focal neurological deficits
Skin: no rash
Psychiatric: well kept. interactive and cooperative
Extremities: no edema. no calf tenderness.
Course
Orders/Labs/Results
Orders:
Orders
06/09/24 16:06
Electrocardiogram (*1) Urgent
Reason for Study: Palpitations
EKG- Treatment ONCE
Test Result ONCE
06/09/24 16:12
Complete Blood Count/With Diff Urgent
Comprehensive Metabolic Panel Urgent
Ferritin Urgent
Comment: ADD ON
HCG, Serum Qualitative Screen Urgent
Iron Urgent
Comment: ADD ON
TSH Reflex To Free T4 Urgent
Total Iron Binding Urgent
Comment: ADD ON
06/09/24 17:56
Add On- LAB Urgent
Tests Added?: iron, ferritin, TIBC
Penicillin V Potassium [Pen Vk] 500 mg PO NOW STA
Abnormal Lab Results
06/09/24
16:12
WBC 3.6 L 10^3/uL
(4.8-10.8)
RBC 4.05 L 10^6/uL
(4.20-5.40)
Hgb 7.5 L g/dL
(12.0-16.0)
Hct 26.5 L %
(37.0-47.0)
MCV 65.4 L fL
(81.0-99.0)
MCH 18.5 L pg
(27.0-31.0)
MCHC 28.3 L g/dL
(33.0-37.0)
RDW 19.9 H %
(11.5-14.5)
Absolute Lymphs (auto) 1.0 L 10^3/uL
(1.2-3.4)
Glucose 108 H mg/dl
(70-99)
Iron 31 L ug/dl
(37-170)
% Saturation 6 L %
(20-50)
Ferritin 5.4 L ng/ml
(6.24-137)
06/09/24 16:12
06/09/24 16:12
Vital Signs
Initial and Last Documented VS:
Initial Vital Signs
Temp Pulse Resp BP Pulse Ox
99.4 F 96 18 187/112 100
06/09/24 16:04 06/09/24 16:04 06/09/24 16:04 06/09/24 16:04 06/09/24 16:04
Last Documented Vital Signs
Temp Pulse Resp BP Pulse Ox
98.3 F 79 17 167/93 99
06/09/24 17:19 06/09/24 17:19 06/09/24 17:19 06/09/24 17:19 06/09/24 17:19
MDM/Problems Addressed
MDM/Problems Addressed:
Patient presenting with 2 different complaints. Dental pain with associated fracture, will be treated with antibiotics. Patient states that she has a dentist, with whom she will follow-up as an outpatient. Patient's presenting palpitations,
likely multifactorial, including underlying anemia along with recent heavy menstrual cycle. As patient recently regained her medical insurance, patient will be referred to [facility] medical clinic for outpatient evaluation.
Until then, advised diet modification, with special attention to iron rich food products, along with iron supplements. Advised to return to ED with worsening symptoms. Patient expressed understanding at time of discharge.
*Critical Care Note
Total Time (30-74mins, 75-104mins- exclusive of procedures): Not Applicable
ED Attending Note
-
Portions of this chart may have been created with voice recognition software.� Occasional wrong word or��sound alike� substitutions may have occurred due to the inherent limitations of voice recognition software.
Discharge Plan
Departure
Patient Disposition: Home (Routine Discharge)
Date of Disposition: 06/09/24
Time of Disposition: 17:57
Patient with high blood pressure during this ER visit?: Yes
Condition: Good
Discharge Problem:
Pain, dental, Anemia, Heart palpitations
Instructions: Palpitations (DC), Anemia in adults, possibly from low iron - ED discharge instructions, Palpitations - ED discharge instructions
Prescriptions:
New
penicillin V potassium 500 mg tablet
500 mg PO TID Qty: 20 0RF
No Action
famotidine 20 MG tablet
20 mg PO BID Qty: 28 0RF
Rx Instructions:
Take 20 mg twice a day for 14 days
ascorbic acid (vitamin C) [Vitamin C] 500 MG tablet
1,000 mg PO BID Qty: 56 0RF
Rx Instructions:
Take 1,000 mg twice a day for 14 days
aspirin 81 MG tablet,chewable
81 mg PO DAILY Qty: 14 0RF
Rx Instructions:
Take 81 mg daily for 14 days
zinc sulfate 220 MG capsule
220 mg PO DAILY Qty: 14 0RF
Rx Instructions:
Take 220 mg daily for 14 days
cholecalciferol (vitamin D3) 1,000 UNITS tablet
2,000 units PO DAILY Qty: 28 0RF
Rx Instructions:
Take 2,000 units daily for 14 days
melatonin 5 MG tablet
5 mg PO HS Qty: 14 0RF
Rx Instructions:
Take 5 mg daily at bedtime for 14 days
albuterol sulfate 1 PUFF HFA aerosol inhaler
2 puff inhalation R Q4HPRN PRN (Reason: shortness of breath) Qty: 1 0RF
nicotine 1 EACH patch 24 hour
1 ea TD DAILY Qty: 30 0RF
nicotine 1 EACH patch 24 hour
1 ea TD DAILY Qty: 30 0RF
hydrochlorothiazide 12.5 MG capsule
12.5 mg PO DAILY Qty: 30 0RF
amlodipine 2.5 MG tablet
2.5 mg PO DAILY Qty: 30 0RF
Referrals:
[facility] [Outside]
Salud Lopez MD [Active] -
Taylor Bauer MD [Active] -
Activity Restrictions/Additional Instructions:
As discussed, please follow-up with referred [facility] medical clinic for continual evaluation and treatment. In addition, you have been provided with 2 different group of [employer] physicians, with whom you may consider following up for heavy
menstrual cycle. Your prescription has been sent electronically to [facility] pharmacy in [place]. Along with prescribed antibiotics, please take [id number] iron supplements, as well as iron rich diet.
Interventions
Interventions:
*Risk Screen - Suicide Last Done: 06/09/24 16:04
*General Assessment Last Done: 06/09/24 16:04
*Neglect/Abuse Screening Last Done: 06/09/24 16:04
*ED COVID-19 Vaccine History Last Done: 06/09/24 16:04
ED- Cardiac Assessment Last Done: 06/09/24 17:51
ED- Pulmonary Assessment Last Done: 06/09/24 17:51
Discharge Date and Time
Discharge Date/Time: 06/09/24 18:18
Print Language: MALAYSIAN
[2024-06-09] MEDS: PEN VK 500 MG PO (18:06)
[2024-06-09 18:28] LABS: Iron 31 ug/dl (37-170)
[2024-06-09 18:38] LABS: Percent Saturation 6 % (20-50); Total Iron Binding Capacity 461 ug/dl (265-497)
[2024-06-09 19:04] LABS: Ferritin 5.4 ng/ml (6.24-137)
== END 2024-06-09 18:18 | disposition home or self-care (01) ==
LOC: EMR 15:59
PROVIDERS: Emergency Medicine; EMERGENCY PHYSICIAN Emergency Medicine; FAMILY PHYSICIAN Family Medicine
DX: D64.9 Anemia, unspecified (principal); R00.2 Palpitations; K08.89 Other specified disorders of teeth and supporting structures; F17.200 Nicotine dependence, unspecified, uncomplicated; I10 Essential (primary) hypertension
CPT/HCPCS: 99284; 80053; 82728; 83540; 83550; 84443; 84703; 85025; 93005

== ENCOUNTER 2024-08-07 00:16 | Emergency (ER) | payer OTHER, SELFPAY ==
[2024-08-07 00:24] VITALS: BP 169/116
--- NOTE | 2024-08-07 01:35 | ED.GENMED ---
History of Present Illness
General
Chief Complaint: Musculo-Skeletal Complaint
Source: patient
Exam Limitations: none
Time Seen by Provider: 08/07/24 01:24
History of Present Illness
History of Present Illness:
38yoF with a history of hypertension presenting for evaluation of left fifth toe pain. She noticed a hard lump on her toe about 2 weeks ago which she thought was a corn. She has used several [id number] callus and corn removers to try to
remove this. She started to notice some bleeding in the toe yesterday and is now having pain. She is worried that she is developing an infection so decided come to the ED. No fevers or chills. Patient called today to try to make an appointment
with podiatry but was unable to get in contact with them.
Past History
Past History
ED Past Medical History: HTN and Other (anemia)
ED Past Surgical History: Other (Gastric sleeve 08/2022.)
Social History
Tobacco: Smoker
Alcohol: Occasional
Personal: Single
Living: with family
Employment: Employed (works at a school)
Family History
Family History: Other
Phy Exam
General Physical Exam
General Presentation: well appearing and no apparent distress
General Skin: warm and dry
General Habitus: normal
General Mental: alert
Pulmonary Exam
Pulmonary Exam: no respiratory distress
Neurological Exam
Neurological Exam: alert
Christiano Coma Scale
Eye Opening: Spontaneous
Verbal Response: Oriented
Motor Response: Obeys Commands
GCS Total Score: 15
Musculoskeletal Exam
Musculoskeletal Exam: other (L 5th toe appears irritated and erythematous with two small wounds. +Tender to touch. No discharge or crepitus. 2+ DP pulse.)
Skin Exam
Skin Exam: warm/dry
Psychiatric Exam
Psychiatric Exam: normal mood/affect
Course
Orders/Labs/Results
Orders:
Orders
08/07/24 01:34
CR Toe(s) Min 2 Vw Left Urgent
Comment:
Reason For Exam: 5th toe pain
08/07/24 02:07
Cephalexin Monohydrate [Keflex] 500 mg PO NOW STA
Vital Signs
Initial and Last Documented VS:
Initial Vital Signs
Temp Pulse Resp BP Pulse Ox
98.7 F 96 24 169/116 100
08/07/24 00:24 08/07/24 00:24 08/07/24 00:24 08/07/24 00:24 08/07/24 00:24
Last Documented Vital Signs
Temp Pulse Resp BP Pulse Ox
98.7 F 79 18 158/97 96
08/07/24 00:24 08/07/24 02:10 08/07/24 02:10 08/07/24 02:10 08/07/24 02:10
MDM/Problems Addressed
Differential Diagnosis Includes:
38yoF here with L 5th toe pain. Has been using OTC callous/corn removal agents and now having pain since yesterday. No f/c. Digit is very irritated with two small wounds and tenderness. No drainage noted. X-rays obtained which appear normal per my
interpretation without fracture or evidence of osteomyelitis. Patient advised to stop all xoxq-ewu-[id number] products. Will start on Keflex for possible developing infection. Advised follow-up with podiatry and ED return precautions reviewed.
*Pulse Oximetry
SaO2: 100
Oxygen Mode of Delivery: Room air
Patient hypoxic: no (96%)
*Critical Care Note
Total Time (30-74mins, 75-104mins- exclusive of procedures): Not Applicable
ED Attending Note
-
Portions of this chart may have been created with voice recognition software.� Occasional wrong word or��sound alike� substitutions may have occurred due to the inherent limitations of voice recognition software.
Discharge Plan
Departure
Patient Disposition: Home (Routine Discharge)
Date of Disposition: 08/07/24
Time of Disposition: 02:07
Patient with high blood pressure during this ER visit?: Yes
Discharge Problem:
Infection of toe
Instructions: Corns and calluses
Prescriptions:
New
cephalexin 500 mg capsule
500 mg PO Q6H 7 Days Qty: 27 0RF
No Action
famotidine 20 MG tablet
20 mg PO BID Qty: 28 0RF
Rx Instructions:
Take 20 mg twice a day for 14 days
ascorbic acid (vitamin C) [Vitamin C] 500 MG tablet
1,000 mg PO BID Qty: 56 0RF
Rx Instructions:
Take 1,000 mg twice a day for 14 days
aspirin 81 MG tablet,chewable
81 mg PO DAILY Qty: 14 0RF
Rx Instructions:
Take 81 mg daily for 14 days
zinc sulfate 220 MG capsule
220 mg PO DAILY Qty: 14 0RF
Rx Instructions:
Take 220 mg daily for 14 days
cholecalciferol (vitamin D3) 1,000 UNITS tablet
2,000 units PO DAILY Qty: 28 0RF
Rx Instructions:
Take 2,000 units daily for 14 days
melatonin 5 MG tablet
5 mg PO HS Qty: 14 0RF
Rx Instructions:
Take 5 mg daily at bedtime for 14 days
albuterol sulfate 1 PUFF HFA aerosol inhaler
2 puff inhalation R [id number] PRN (Reason: shortness of breath) Qty: 1 0RF
nicotine 1 EACH patch 24 hour
1 ea TD DAILY Qty: 30 0RF
nicotine 1 EACH patch 24 hour
1 ea TD DAILY Qty: 30 0RF
hydrochlorothiazide 12.5 MG capsule
12.5 mg PO DAILY Qty: 30 0RF
amlodipine 2.5 MG tablet
2.5 mg PO DAILY Qty: 30 0RF
penicillin V potassium 500 mg tablet
500 mg PO TID Qty: 20 0RF
Referrals:
NONE,* [Family Provider, Internal Medicine]
Deanna Singh DPM [Active, Podiatry]
Activity Restrictions/Additional Instructions:
Take antibiotics as prescribed. Keep wound clean and dry. Stop applying products.
Please call tomorrow to schedule a follow-up with podiatry. Return to the ER with any worsening symptoms including fevers.
Interventions
Interventions:
*Risk Screen - Suicide Last Done: 08/07/24 00:24
*Nursing Disposition Last Done: 08/07/24 02:14
ED-Musculoskeletal Assessment Last Done: 08/07/24 01:38
Discharge Date and Time
Discharge Date/Time: 08/07/24 02:14
Print Language: ZAMBIAN
[2024-08-07 02:10] VITALS: BP 158/97
[2024-08-07] MEDS: KEFLEX 500 MG PO (02:12)
== END 2024-08-07 02:14 | disposition home or self-care (01) ==
LOC: EMR 00:16
PROVIDERS: EMERGENCY PHYSICIAN Emergency Medicine
DX: L08.9 Local infection of the skin and subcutaneous tissue, unspecified (principal); I10 Essential (primary) hypertension; Z98.84 Bariatric surgery status; F17.200 Nicotine dependence, unspecified, uncomplicated
CPT/HCPCS: 99283; 73660

== ENCOUNTER → 2024-08-25 07:50 | Outpatient (REF) | payer OTHER, SELFPAY | LOC: RAD 07:50 | PROVIDERS: ATTENDING PHYSICIAN Student in an Organized Health Care Education/Training Program | DX: Z86.718 Personal history of other venous thrombosis and embolism (principal); R22.42 Localized swelling, mass and lump, left lower limb; I82.890 Acute embolism and thrombosis of other specified veins | CPT/HCPCS: 93970 ==

== ENCOUNTER → 2024-11-25 10:29 | Outpatient (REF) | payer OTHER, SELFPAY | LOC: HWRAD 10:29 | PROVIDERS: ATTENDING PHYSICIAN Obstetrics & Gynecology; FAMILY PHYSICIAN Student in an Organized Health Care Education/Training Program | DX: N92.0 Excessive and frequent menstruation with regular cycle (principal) | CPT/HCPCS: 76830; 76856 ==

== ENCOUNTER 2024-11-28 00:18 | Emergency (ER) | payer OTHER, SELFPAY ==
[2024-11-28 00:30] VITALS: BP 148/105
[2024-11-28 03:21] VITALS: BMI 39.4
[2024-11-28 03:27] VITALS: BP 138/93
[2024-11-28] MEDS: TYLENOL 1000 MG PO (05:37)
[2024-11-28] MEDS: MOTRIN 400 MG PO (05:37)
[2024-11-28 05:41] VITALS: BP 141/103
--- NOTE | 2024-11-28 05:54 | ED.GENMED ---
History of Present Illness
General
Chief Complaint: Fall
Source: patient
Exam Limitations: none
Time Seen by Provider: 11/28/24 03:43
Nursing documentation reviewed up to this point in time: agreed with
History of Present Illness
History of Present Illness:
39-year-old female with past medical history as documented presents to the ER for evaluation after trip and fall. Patient was walking up the stairs at work and says that she tripped and fell forward. She did hit the left side of her forehead on a
stair but did not lose consciousness. She mainly injured her right wrist, also twisted her left ankle. She complains mainly of pain in the right wrist particular with any movement. She does have some left ankle pain but was able to weight-bear
and says pain is relatively mild. She denies any headache or neck pain. Denies any rib pain or back pain. Denies any other acute complaints. She is not on any blood thinners.
Past History
Past History
ED Past Medical History: HTN and Other (anemia)
ED Past Surgical History: Other (Gastric sleeve 08/2022.)
Social History
Tobacco: Smoker
Alcohol: Occasional
Personal: Single
Living: with family
Employment: Employed (works at a school)
Family History
Family History: Other
Review of Systems
Review of Systems
All Other Systems: ROS reviewed and negative except as documented in HPI and ROS
Respiratory: Denies trouble breathing
Cardiac: Denies chest pain
ABD/GI: Denies abdominal pain
: Denies flank pain
Musculoskeletal: Reports joint pain; Denies neck pain or back pain
Neurological: Denies headache
Phy Exam
Physical Exam
Physical Exam:
General: Awake, alert, oriented x3; no acute distress
Head: Normocephalic, atraumatic
Eyes: Conjunctiva normal, EOMI, pupils equal round and reactive to light bilaterally
Throat: Airway intact, handling secretions, tongue atraumatic
Neck: Trachea midline, no cervical spine tenderness, full range of motion without pain
Back: No tenderness in the thoracic or lumbar spine
Lungs: Breathing comfortable with no distress
Heart: Regular rate; no rib tenderness
Abd: Soft, non distended, nontender
Neuro: Cranial nerves grossly intact, speech fluid, motor and sensory grossly intact
Skin: No lacerations or abrasions noted
Extremities: On exam of the right wrist patient has swelling the wrist and tenderness in the anatomic snuffbox and over the distal radius as well as the ulnar styloid; any attempted range of motion of the wrist elicits significant pain; no
tenderness in the elbow or shoulder on the right; strong right radial pulse; on exam of the left lower extremity she has some swelling and tenderness just anterior to the lateral malleolus but no tenderness of the medial malleolus or along the fifth
metatarsal, no tenderness to the left knee; rest of extremities are atraumatic
Scores
Heart Failure Risk
Heart Failure Risk Score: Not Applicable
Heart Score for Chest Pain Patients
STEMI patient?: Not applicable
Withdrawal Assessment of Alcohol
Withdrawal Assessment Completed?: Not applicable
Course
Orders/Labs/Results
Orders:
Orders
11/28/24 00:36
Ankle, left 3 view CR [CR Ankle - Left Min 3 Views ] Urgent
Comment:
Reason For Exam: injury
CR Forearm - Right 2 View Urgent
Comment:
Reason For Exam: injury
CR Hand - Right Min 3 Views Urgent
Comment:
Reason For Exam: injury
11/28/24 05:33
Acetaminophen [Tylenol] 1,000 mg PO NOW STA
Ibuprofen [Motrin] 400 mg PO NOW STA
11/28/24 05:34
CR Wrist - Right Min 3 Views Urgent
Comment:
Reason For Exam: wrist pain
Vital Signs
Initial and Last Documented VS:
Initial Vital Signs
Temp Pulse Resp BP Pulse Ox
36.9 C 89 20 148/105 96
11/28/24 00:30 11/28/24 00:30 11/28/24 00:30 11/28/24 00:30 11/28/24 00:30
Last Documented Vital Signs
Temp Pulse Resp BP Pulse Ox
36.7 C 72 18 141/103 97
11/28/24 05:41 11/28/24 05:41 11/28/24 05:41 11/28/24 05:41 11/28/24 05:59
Procedures
Splinting/Sling Placement
Right Wrist:
Procedure completed by: Elmer Becker MD
Pre-splint extermity exam: neurovascular intact
Type of splint: thumb spica
Splint material: fiberglass
Splint checked by provider?: Yes
Type of sling: sling fitted
MDM/Problems Addressed
Differential Diagnosis Includes:
Wrist pain: Fracture, sprain
Ankle pain: Fracture, sprain
MDM/Problems Addressed:
39-year-old female presents for evaluation of wrist pain and ankle pain after fall. She did hit her head as well but no loss of consciousness, not on blood thinners�using [place] head CT rule as a guide no indication for emergent CT head. She had
x-rays in triage of the forearm and hand but not of the wrist; she also had an x-ray of the ankle. No acute fractures noted on any x-rays on my review but will obtain dedicated wrist x-ray. Will treat with Tylenol and Motrin. Reassess at the
above.
X-ray of the wrist reviewed by me no clear acute fracture however given significant pain on range of motion at focal snuffbox tenderness concern for occult scaphoid fracture. For this reason she was placed in a thumb spica splint and referred to
orthopedics for follow-up. I do suspect a left ankle injury as a mild sprain and she is weightbearing here�advised regarding RICE. All questions answered.
*Radiology
Radiology exam reviewed: preliminary read by ED provider
*Pulse Oximetry
SaO2: 97
Oxygen Mode of Delivery: Room air
Patient hypoxic: no (97%)
*Critical Care Note
Total Time (30-74mins, 75-104mins- exclusive of procedures): Not Applicable
Data Reviewed
Source: patient
ED Attending Note
-
Portions of this chart may have been created with voice recognition software.� Occasional wrong word or��sound alike� substitutions may have occurred due to the inherent limitations of voice recognition software.
Discharge Plan
Departure
Patient with high blood pressure during this ER visit?: Yes
Discharge Problem:
Left ankle sprain, Right wrist sprain
Instructions: Common Wrist Injuries ED, Ankle sprain - ED (DC)
Prescriptions:
No Action
metoprolol succinate 100 mg Tablet Extended Release 24 Hr
100 mg PO DAILY
amlodipine 5 mg Tablet
5 mg PO DAILY
omeprazole 40 mg Capsule,Delayed Release(Dr/Ec)
40 mg PO DAILY
lidocaine 5 % Adhesive Patch,Medicated
1 patch topical PRN PRN (Reason: back pain)
losartan 25 mg Tablet
25 mg PO DAILY
Wellbutrin
1 tab PO Daily
Patient Comments:
pt does not know mg
Referrals:
Yue Chisholm MD, Resident [Family Provider, General]
Josh King MD [Active, Orthopedics] - Call in 1-3 days for appt
Stand Alone Forms: Return to Work
Activity Restrictions/Additional Instructions:
Thank you for visiting the Emergency Department at [facility].
1. Please schedule a follow up appointment as directed. Call first thing tomorrow morning to make an appointment.
2. If indicated, please take your medications as instructed and indicated on discharge paperwork.
3. If any of your symptoms do not improve, or persist, or become more severe within 6-12 hours, please return to the emergency department for further care.
4. Please return to the emergency department if you develop a headache, neck pain/stiffness, fever greater than 100.4F, chest pain, shortness of breath, persistent nausea, vomiting, slurred speech, difficulty walking, numbness/tingling, weakness,
signs of infection or any other symptoms that are worrisome to you.
Please call [phone] if you have any questions.
Interventions
Interventions:
*Risk Screen - Suicide Last Done: 11/28/24 00:30
*General Assessment Last Done: 11/28/24 00:30
*Neglect/Abuse Screening Last Done: 11/28/24 00:30
*ED- Fall Risk Assessment Last Done: 11/28/24 00:30
*ED COVID-19 Vaccine History Last Done: 11/28/24 00:30
*ED Influenza Vaccine History Last Done: 11/28/24 00:30
ED-Musculoskeletal Assessment Last Done: 11/28/24 03:37
ED- Neurological Assessment Last Done: 11/28/24 03:37
ED-Skin Assessment Last Done: 11/28/24 03:37
Discharge Date and Time
Print Language: [place]
[2024-11-28 06:36] VITALS: BP 148/108
== END 2024-11-28 06:37 | disposition home or self-care (01) ==
LOC: EMR 00:18
PROVIDERS: EMERGENCY PHYSICIAN Emergency Medicine; FAMILY PHYSICIAN Student in an Organized Health Care Education/Training Program
DX: S93.402A Sprain of unspecified ligament of left ankle, initial encounter (principal); S63.501A Unspecified sprain of right wrist, initial encounter; W01.0XXA Fall on same level from slipping, tripping and stumbling without subsequent striking against object, initial encounter; X50.1XXA Overexertion from prolonged static or awkward postures, initial encounter; Y93.01 Activity, walking, marching and hiking; I10 Essential (primary) hypertension; F17.200 Nicotine dependence, unspecified, uncomplicated; Z98.84 Bariatric surgery status
CPT/HCPCS: 29125; 99284; 73090; 73110; 73130; 73610

== ENCOUNTER → 2024-12-30 10:57 | Outpatient (REF) | payer OTHER, SELFPAY | LOC: RAD 10:57 | PROVIDERS: ATTENDING PHYSICIAN Student in an Organized Health Care Education/Training Program | DX: R22.42 Localized swelling, mass and lump, left lower limb (principal); Z82.49 Family history of ischemic heart disease and other diseases of the circulatory system | CPT/HCPCS: 93971 ==